=== PATIENT | female | born 1970 | race Two or more races ===

== ENCOUNTER 2018-09-27 07:33 | Day surgery (SDC) | payer OTHER ==
[~2018-09-27] VITALS: Ht 152.4 cm; Wt 143.3 kg
[~2018-09-27 07:33] MED LIST: AMLODIPINE BESYL5 MG ORAL; IBUPROFEN600 MG ORAL; LR 1000ml 1,000 ML IV SCH; OMEPRAZOLE40 M1 ORAL
[2018-09-27 08:12] VITALS: BP 121/61
--- NOTE | 2018-09-27 08:22 | Short Stay Surgery H&P ---
History of Present Illness History of Present Illness Chief Complaint Abdominal pains/Rectal bleeding HPI Alexa Moore is a 48 year old female who was admitted on for Abdominal Pain/ rectal bleeding Patient History Allergies: Coded Allergies: NAPROXEN (Verified Allergy, Intermediate, swelling, 09/26/18) PAST MEDICAL HISTORY: (1) Hypertension (2) Status post cholecystectomy (3) Status post tubal ligation (4) Status post appendectomy Medication History Scheduled Amlodipine Besylate* (Amlodipine Besylate*), 5 MG ORAL DAILY, (Reported) Ibuprofen* (Motrin*), 400 MG ORAL PRN, (Reported) Omeprazole (Omeprazole), 40 MG ORAL DAILY, (Reported) Review of Systems Cardiovascular: Reports: hypertension Respiratory: Reports: no symptoms Skeletal: Reports: trauma Gastrointestinal: Reports: see HPI, gastro esophageal reflux disease Genitourinary: Reports: no symptoms Neurologic: Reports: no symptoms Endocrine: Reports: no symptoms Physical Exam Vital Signs Last Vital Signs Date Time Temp Pulse Resp B/P (MAP) Pulse Ox O2 Delivery O2 Flow Rate FiO2 09/27/18 08:14 Room Air 09/27/18 08:12 98.2 73 18 121/61 97 Skin: normal HENT: normal Heart: normal Lungs: normal Abdomen: abnormal Extremities: normal Genitourinary: normal Plan Plan of Care Total colonsocopy with possible biopsy/polypectomy etc. Preop Interventions None. Summary of Findings See the findings Attestation Are the patient's medical conditions optimized for surgery? Attestation Response: yes Iris Garcia MD September 27, 2018 08:22
--- NOTE | 2018-09-27 08:23 | Pre-Procedure Note/Attestation ---
Pre-Procedure Note/Attestation Complete Prior to Procedure Planned Procedure: left Procedure Narrative: Examination of the colon via endoscopy Indications for Procedure Pre-Operative Diagnosis: R/O hemorrhoids, polyps, colitis, tumor. Attestation I attest that I discussed the nature of the procedure; its benefits; risks and complications; and alternatives (and the risks and benefits of such alternatives ), prior to the procedure, with the patient (or the patient's legal liability claims representative). I attest that, if there was a reasonable possibility of needing a blood transfusion, the patient (or the patient's legal liability claims representative) was given the [facility] standardized written summary, pursuant to the [place] Blood Safety Act ([place] Health and Safety Code # 1645, as amended). I attest that I re-evaluated the patient just prior to the surgery and that there has been no change in the patient's H&P, except as documented below: Iris Garcia MD September 27, 2018 08:23
[2018-09-27] MEDS ORDERED: LR 1000ml ONE (08:30)
[2018-09-27] MEDS ORDERED: Propofol 200mg/20ml IV ONE (08:30)
--- NOTE | 2018-09-27 08:46 | Anethesia Preoperative Eval ---
Anesthesia Pre-op PMH/ROS General Date of Evaluation: September 27, 2018 Time of Evaluation: 08:00 ASA Score: ASA 4 Mallampati Score Class I : Soft palate, uvula, fauces, pillars visible Class II: Soft palate, uvula, fauces visible Class III: Soft palate, base of uvula visible Class IV: Only hard plate visible Mallampati Classification: Class III Allergies: Coded Allergies: NAPROXEN (Verified Allergy, Intermediate, swelling, 09/26/18) Patient NPO?: Yes Anesthesia Pre-op Phys. Exam Physician Exam Last Vital Signs Date Time Temp Pulse Resp B/P (MAP) Pulse Ox O2 Delivery O2 Flow Rate FiO2 09/27/18 08:14 Room Air 09/27/18 08:12 98.2 73 18 121/61 97 Airway Exam Mallampati Score: Class III Ken Wyatt MD September 27, 2018 08:46
--- NOTE | 2018-09-27 08:54 | Endoscopy Procedure Note ---
Endoscopy Procedure Note General Indication for Procedure: Rectal bleeding/abdominal pains Procedures Performed: colonoscopy - Poor colon prep/difficult procedure with evidence of minimal non friable internal hemorrhoids;otherwise normal total colonoscopy Specimen: yes Pt Tolerated Procedure Well: Yes Estimated Blood Loss: none Anesthesia Anesthesiologist: Dr. Wyatt Anesthesia: moderate sedation Medications Medication Given: see anesthesia record Inserted Devices Implant(s) used?: No Quality Quality of Bowel Preparation: Poor Did scope reach the cecum?: Yes Was there any complications?: No GI Core Measures 50 yrs or older w/o bx or poly: Yes 10yrs. F/U recommended: Yes If not recommended, why?: 18 years or older w/prev. colo: No Med reason:<3 yrs.: System Reason:<3 yrs.: Last colonoscopy >= to 3yrs: Yes Iris Garcia MD September 27, 2018 08:54
--- NOTE | 2018-09-27 08:55 | Discharge Instructions ---
Discharge Instructions Discharge Instructions Follow up with: See narcisa mckeon in office after 2 weeks call first. For Congestive Heart Failure Reminder Report to your physician any weight gain of 5 pounds or more in one week. Iris Garcia MD September 27, 2018 08:55
[2018-09-27 09:05] VITALS: BP 123/60
--- NOTE | 2018-09-27 09:09 | Immediate Post-Op Evaluation ---
Immediate Post-Op Evalulation Immediate Post-Op Evalulation Procedure: colonoscopy Date of Evaluation: September 27, 2018 Time of Evaluation: 09:09 Nausea: No Vomiting: No Kne Wyatt MD September 27, 2018 09:09
[2018-09-27 09:10] VITALS: BP 131/69
[2018-09-27 09:15] VITALS: BP 118/73
[2018-09-27 09:35] VITALS: BP 124/72
--- NOTE | 2018-09-27 09:38 | 48 Hour Post Anesthesia Eval ---
Post Anesthesia Evaluation Procedure: colonoscopy Date of Evaluation: September 27, 2018 Time of Evaluation: 09:38 Nausea: No Vomiting: No Ken Wyatt MD September 27, 2018 09:38
[2018-09-27 10:05] VITALS: BP 122/72
--- NOTE | 2018-09-27 15:30 | Pre-op HX & Phy Repo 2 SIG ---
DATE OF ADMISSION: 09/27/2018 HISTORY OF PRESENT ILLNESS: The patient is a 48-year-old female who is being seen prior to undergoing the procedure of colonoscopic examination for which she has been scheduled to receive for evaluation of her GI condition, which has been mostly abdominal pain and rectal bleeding that she has suffered subsequent to her work injuries as has been reported. The patient reports to me today that basically at this time, she does not have any rectal bleeding as this seems to have been stopped for a long period of time; however, she has had occasional abdominal pain, which is mostly located in the left lower quadrant area and upper part of the abdomen mostly on the right side. She however complains of significant amount of heartburn that she has had and for which she has been treated with multiple medications including omeprazole and H2 tatianna agents. Unfortunately, she suffers from significant morbid obesity that has not been paid attention to any kind of treatment at this time as I see. The patient also complains of periods of nausea, which seems to be related to some effects of medications?. She denies having any major constipation or diarrhea or black stools. No vomiting blood per past history. There has been no history of peptic ulcer disease in the past. 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 PAST MEDICAL HISTORY: Basically, the patient has had history of hypertension and morbid obesity. SURGICAL HISTORY: Cholecystectomy and appendectomy and tubal ligation. ALLERGIES: She reports that she is allergic to tuna and Aleve and naproxen. CHILDHOOD DISEASES: Usual and nonsignificant. FAMILY HISTORY: It is important for the father who has had myocardial infarction. The mother has mental disorders, possibly Alzheimer disease with high blood pressure. One sister also of coronary artery disease and possible myocardial infarction. HABITS: She denies drinking alcohol or smoking cigarettes. MEDICATIONS CURRENTLY SHE IS TAKING: Omeprazole 40 mg daily, Mylanta, and amlodipine 5 mg daily along with ibuprofen 400 mg daily. REVIEW OF SYSTEMS: None significant. PHYSICAL EXAMINATION: GENERAL: At this time reveals alert, well-oriented female, who is excessively obese. VITAL SIGNS: Blood pressure 121/61, respiratory rate is 18, pulse rate is 73, temperature 98.2. HEENT: Normocephalic. Pupils equal in size and reactive to light and accommodation. No visible jaundice. NECK: Supple. No JVD, thyromegaly, or adenopathy. CHEST: Clear to auscultation and percussion. No rales or rhonchi. HEART: S1, S2 normal. Regular rate and rhythm. No gallops or murmur noted. ABDOMEN: Soft, but excessively obese, but there is no any palpable hepatosplenomegaly. There is some tenderness over the upper and lower part of the abdomen. No palpable mass or percussion tenderness noted at this time. EXTREMITIES: No pretibial edema, cyanosis, or clubbing. SKIN AND LYMPHATICS: Nonsignificant. PRELIMINARY PREOPERATIVE IMPRESSION: 1. Generalized abdominal pain of uncertain etiology. 2. History of rectal bleeding, rule out underlying hemorrhoids versus colitis, polyps, tumors. 3. History of gastroesophageal acid reflux, GERD, stable. 4. History of significant morbid obesity. 5. Hypertension. RECOMMENDATIONS: The applicant seems to be stable at this time to undergo the procedure of colonoscopic examination for which she has been scheduled. She understands the risks and benefits and will sign the consent. Said Pablo Garcia DR: ARTURO JOB#: [id number] CC:
--- NOTE | 2018-09-27 15:45 | Operative Note - Dictated ---
DATE OF OPERATION: 09/27/2018 SURGEON: Iris Garcia M.D. PROCEDURE: Total colonoscopy. PREOPERATIVE DIAGNOSES: Rectal bleeding, abdominal pain. POSTOPERATIVE DIAGNOSES: Extremely difficult procedure due to lack of adequate colonic preparation, otherwise presence of minimal internal hemorrhoids with hypertrophic anal papillae as examined up to the base of the cecum. No polyps, tumors, colitis found. MEDICATIONS: Per Dr. Wyatt, anesthesiologist. INSTRUMENT: GIF Olympus video colonoscope. DESCRIPTION OF PROCEDURE: The patient after arriving in endoscopy unit, was told about risks and benefits of the procedure, which she accepted and signed informed consent. At this time, she was put on the left lateral decubitus position. After adequate IV sedation, the scope was gently passed through the anal area and a retroflexion maneuver, which was applied here revealed evidence of minimal internal hemorrhoids, which were not friable and there was evidence of minimal hypertrophic anal papilla. The rest of the rectum looked normal; however, there was significant amount of liquidy stool along the colon, which made the examination very difficult and was suggestive of poor colonic preparation. At this time, significant amount of time was passed to be able to go through the different part of the colon due to lack of adequate cleanup and tortuosity of the colon as well. However, the examination of the left colon along with transverse and ascending colon all the way to the base of the cecum revealed no any evidence of tumors, polyps, inflammatory process, stricture etc. Upon reaching to the base of the cecum, the scope within 7 minutes gradually pulled out and procedure was terminated without finding any other pathologies. The patient tolerated the procedure well and left the endoscopy room in good condition. Iris Garcia M.D. DR: ARTURO JOB#: [id number] CC:
== END 2018-09-27 10:20 | disposition home or self-care (01) ==
LOC: GAS 07:33
DX: K62.5 Hemorrhage of anus and rectum (principal); R10.9 Unspecified abdominal pain; K64.8 Other hemorrhoids; Z90.49 Acquired absence of other specified parts of digestive tract; Z90.89 Acquired absence of other organs; Z91.013 Allergy to seafood; Z88.6 Allergy status to analgesic agent; Z79.899 Other long term (current) drug therapy; Z82.49 Family history of ischemic heart disease and other diseases of the circulatory system; Z81.8 Family history of other mental and behavioral disorders; I10 Essential (primary) hypertension; K21.9 Gastro-esophageal reflux disease without esophagitis; E66.01 Morbid (severe) obesity due to excess calories; Z68.44 Body mass index [BMI] 60.0-69.9, adult
CPT/HCPCS: 45378; J2704; 94003; 94150